=== PATIENT | male | born 1955 | race Caucasian/White ===

== ENCOUNTER 2021-02-22 17:08 | Emergency (ER) | payer OTHER, SELFPAY ==
--- NOTE | ~2021-02-22 | XR_ITS ---
EXAMINATION: XR chest 1V CLINICAL INFORMATION: Shortness of breath COMPARISON: 02/02/2019 TECHNIQUE: XR chest 1V Tubes and lines: None Lungs and pleura: Both lungs are clear. Heart and mediastinum: The mediastinum is within normal limits.. Bones/soft tissue: Skeletal structures included are normal for patient's age. XR/XR chest 1V IMPRESSION: No radiographic evidence of acute cardiopulmonary disease.
[2021-02-22 17:32] VITALS: BP 147/73; PULSE 91; RESP 22; TEMP 36.9; O2SAT 97; BMI 25.0
[2021-02-22 18:38] LABS: Influenza A PCR NEGATIVE (Negative); Influenza B PCR NEGATIVE (Negative); Resp Syncy Virus RNA Qual PCR NEGATIVE (Negative); SARS COV2 PCR INHOUSE NEGATIVE (Negative)
[2021-02-22 21:00] VITALS: BP 136/78; PULSE 82; RESP 18; TEMP 36.6; O2SAT 98
--- NOTE | 2021-02-22 21:19 | ED_ITS ---
HPI - SOB/Dyspnea General Chief Complaint: Dyspnea Stated Complaint: diff breathing Time Seen by Provider: 02/22/21 21:19 Source: patient Mode of arrival: ambulatory History of Present Illness HPI Narrative: This is a 65-year-old male with limited past medical history other than daily marijuana use who presents with shortness of breath and productive cough for 3 days that he states has been associated with chills but denies any chest pain/palpitations, nausea, vomiting, abdominal pain, diarrhea, urinary pain/burning/frequency. Patient states that he has had both COVID-19 vaccines, however but feels he may have had a sick contact few days ago. Related Data Home Medications Medication Instructions Recorded Confirmed fexofenadine 180 mg tablet 180 mg PO DAILY PRN 06/20/20 Previous Rx's Medication Instructions Recorded celecoxib 200 mg capsule 200 mg PO DAILY PRN #30 cap 09/30/20 albuterol sulfate 90 mcg/actuation 2 inh INHALATION Q6H PRN #1 ea 10/22/20 breath activated powder inhaler budesonide-formoterol HFA 160 2 puff PO BID #10.2 g 10/22/20 mcg-4.5 mcg/actuation aerosol inhaler omeprazole 20 mg capsule,delayed 20 mg PO DAILY #90 cap 10/22/20 release prednisone 40 mg PO DAILY 4 Days #8 tab 02/22/21 Allergies Allergy/AdvReac Type Severity Reaction Status Date / Time No Known Allergies Allergy Verified 02/22/21 17:39 [No Known Allergies*] Review of Systems Review of Systems: Pertinent positives and negatives as stated in HPI 10 point review of systems is otherwise negative. [facility] Past Medical History Source: nursing notes reviewed Medical History COPD (chronic obstructive pulmonary disease) Surgical History History of total left knee replacement Family History Family History Father No problems noted. Mother GERD (gastroesophageal reflux disease) Social History Social History Advance Directives: No Advance Directives Information Provided: No Physical Exam Vital Signs: Vital Signs: Last Vital Signs Temp 98 F 02/22/21 21:00 Pulse 82 06/05/21 21:00 Resp 18 02/22/21 21:00 BP 136/78 02/22/21 21:00 Pulse Ox 98 02/22/21 21:00 Body Mass Index 25.0 VITAL SIGNS: Reviewed. GENERAL: Well developed, well nourished, in no acute distress. HEAD: Normocephalic/atraumatic EYES: PERRLA, EOMI l OROPHARYNX: no oral lesions noted, posterior pharynx clear, tacky mucosa NECK: Supple, no adenopathy LUNGS: Bibasilar wheezing with scattered rhonchi bilaterally, no hypoxia SpO2<97> CARDIOVASCULAR: Regular rate and rhythm without noted murmurs, no JVD or lower extremity edema. ABDOMEN: Soft, non-tender, non-distended with bowel sounds. NEUROLOGIC: Alert and oriented x 4. Strength and sensation to light touch were grossly intact x 4. Course Course Course Narrative: This is a 65-year-old male with history and clinical presentation most consistent with a bronchitis, review of investigations negative for COVID-19 or acute findings on chest x-ray. Patient declined albuterol but did accept the prednisone. Review of all investigations negative for any acute findings, specifically VBG is negative for evidence of CO2 retention. Patient stable for discharge to home. MDM - SOB/Dyspnea Lab Data Result diagrams: 02/22/21 21:57 02/22/21 21:57 Labs: Lab Results 02/22/21 02/22/21 02/22/21 Range/Units 17:44 21:57 21:57 WBC 10.6 (4.8-10.8) X10*3/uL RBC 4.92 (4.60-5.80) X10*6/uL Hgb 15.5 (14.0-18.0) g/dl Hct 45.7 (42-52) % MCV 92.9 (80-98) fL MCH 31.5 (27.0-33.0) pg MCHC 33.9 (31.0-36.0) g/dl RDW 12.5 (11.0-16.0) % Plt Count 241 (160-400) X10*3/uL MPV 10.2 (9.4-12.4) fL Immature Gran % (Auto) 0.4 (0.0-0.4) % Neut % (Auto) 75.2 H (45-73) % Lymph % (Auto) 10.3 L (20-40) % [place] % (Auto) 10.2 (2-11) % Eos % (Auto) 3.6 (0-4) % Baso % (Auto) 0.3 (0-2) % Lymph # (Auto) 1.1 L (1.2-4.9) X10*3/uL [place] # (Auto) 1.1 (0.1-1.2) X10*3/uL Eos # (Auto) 0.4 (0.0-0.4) X10*3/uL Baso # (Auto) 0.0 (0.0-0.2) X10*3/uL Abs Immat Gran (auto) 0.04 H (0.00-0.03) X10*3/uL Absolute Neuts (auto) 8.0 (2.0-8.3) X10*3/uL Absolute Nucleated RBC 0.000 (0.0-0.012) X10*3/uL Nucleated RBC % (auto) 0.0 (0.0-0.2) /100WBC VBG pH (7.32-7.43) VBG pCO2 mmHg VBG pO2 mmHg VBG HCO3 (22-26) mmol/L VBG O2 Saturation % VBG Base Excess mmol/L Sodium 140 (135-145) mmol/L Potassium 3.9 (3.3-5.1) mmol/L Chloride 104 (96-108) mmol/L Carbon Dioxide 27 (22-29) mmol/L Anion Gap 13 (12-20) BUN 12 (9-16) mg/dL Creatinine 0.98 (0.5-1.4) mg/dL Estim Creat Clear Calc 87.3 Estimated GFR > 60 Random Glucose 120 H (60-115) mg/dL Calcium 9.0 (8.4-10.2) mg/dL Total Bilirubin 0.8 (0.0-1.0) mg/dL AST 11 (5-37) U/L ALT 10 (0-40) U/L Alkaline Phosphatase 97 (39-117) U/L Total Protein 7.1 (6.5-8.0) g/dL Albumin 4.0 (3.5-5.0) g/dL Coronavirus (PCR) NEGATIVE (Negative) Influenza Type A (PCR) NEGATIVE (Negative) Influenza Type B (PCR) NEGATIVE (Negative) RSV RNA Qual (PCR) NEGATIVE (Negative) 02/22/21 Range/Units 21:57 WBC (4.8-10.8) X10*3/uL RBC (4.60-5.80) X10*6/uL Hgb (14.0-18.0) g/dl Hct (42-52) % MCV (80-98) fL MCH (27.0-33.0) pg MCHC (31.0-36.0) g/dl RDW (11.0-16.0) % Plt Count (160-400) X10*3/uL MPV (9.4-12.4) fL Immature Gran % (Auto) (0.0-0.4) % Neut % (Auto) (45-73) % Lymph % (Auto) (20-40) % [place] % (Auto) (2-11) % Eos % (Auto) (0-4) % Baso % (Auto) (0-2) % Lymph # (Auto) (1.2-4.9) X10*3/uL [place] # (Auto) (0.1-1.2) X10*3/uL Eos # (Auto) (0.0-0.4) X10*3/uL Baso # (Auto) (0.0-0.2) X10*3/uL Abs Immat Gran (auto) (0.00-0.03) X10*3/uL Absolute Neuts (auto) (2.0-8.3) X10*3/uL Absolute Nucleated RBC (0.0-0.012) X10*3/uL Nucleated RBC % (auto) (0.0-0.2) /100WBC VBG pH 7.41 (7.32-7.43) VBG pCO2 35 mmHg VBG pO2 35 mmHg VBG HCO3 22 (22-26) mmol/L VBG O2 Saturation 66.0 % VBG Base Excess -1.0 mmol/L Sodium (135-145) mmol/L Potassium (3.3-5.1) mmol/L Chloride (96-108) mmol/L Carbon Dioxide (22-29) mmol/L Anion Gap (12-20) BUN (9-16) mg/dL Creatinine (0.5-1.4) mg/dL Estim Creat Clear Calc Estimated GFR Random Glucose (60-115) mg/dL Calcium (8.4-10.2) mg/dL Total Bilirubin (0.0-1.0) mg/dL AST (5-37) U/L ALT (0-40) U/L Alkaline Phosphatase (39-117) U/L Total Protein (6.5-8.0) g/dL Albumin (3.5-5.0) g/dL Coronavirus (PCR) (Negative) Influenza Type A (PCR) (Negative) Influenza Type B (PCR) (Negative) RSV RNA Qual (PCR) (Negative) Discharge Plan Discharge Clinical Impression: Bronchitis, COPD (chronic obstructive pulmonary disease) Patient Disposition: Home, Self-Care Instructions: Acute Bronchitis (ED), COPD (Chronic Obstructive Pulmonary Disease) (ED) Additional Instructions: Resume all home medications as prescribed. Follow-up with your primary care provider in the next 2-3 days for re- evaluation. Return to the ER for any worsening of symptoms. Prescriptions: New prednisone 20 mg tablet 40 mg PO DAILY 4 Days Qty: 8 RF: 0 No Action celecoxib 200 mg capsule 200 mg PO DAILY PRN (Reason: pain) Qty: 30 RF: 2 ProAir RespiClick 90 mcg/actuation aerosol powdr breath activated 2 inh inhalation Q6H PRN (Reason: shortness of breath) Qty: 1 RF: 0 budesonide-formoterol [Symbicort] 160-4.5 mcg/actuation HFA aerosol inhaler 2 puff PO BID Qty: 10.2 RF: 1 omeprazole 20 mg capsule,delayed release(DR/EC) 20 mg PO DAILY Qty: 90 RF: 1 fexofenadine [Birgit Allergy] 180 mg tablet 180 mg PO DAILY PRNRF: 0 Referrals: Jareth Barry MD [Primary Care Provider] - 2 days
[2021-02-22] MEDS: predniSONE 20 MG TABLET 40 MG PO (21:50)
[2021-02-22 22:03] LABS: MANUAL DIFF FLAG NO
[2021-02-22 22:04] LABS: Basophils Percent Auto 0.3 % (0-2); Eosinophils Absolute Auto 0.4 X10*3/uL (0.0-0.4); Eosinophils Percent Auto 3.6 % (0-4); Hematocrit 45.7 % (42-52); Hemoglobin 15.5 g/dl (14.0-18.0); Imm Gran Abs Auto 0.04 X10*3/uL (0.00-0.03); Imm Gran Pct Auto 0.4 % (0.0-0.4); Lymphocytes Absolute Auto 1.1 X10*3/uL (1.2-4.9); Lymphocytes Percent Auto 10.3 % (20-40); Mean Corpuscular HGB Conc 33.9 g/dl (31.0-36.0); Mean Corpuscular Hemoglobin 31.5 pg (27.0-33.0); Mean Corpuscular Volume 92.9 fL (80-98); Mean Platelet Volume 10.2 fL (9.4-12.4); Monocytes Absolute Auto 1.1 X10*3/uL (0.1-1.2); Monocytes Percent Auto 10.2 % (2-11); Neutrophils Percent Auto 75.2 % (45-73); Platelet Count 241 X10*3/uL (160-400); Red Blood Count 4.92 X10*6/uL (4.60-5.80); Red Cell Distribution Width 12.5 % (11.0-16.0); White Blood Count 10.6 X10*3/uL (4.8-10.8)
[2021-02-22 22:14] LABS: VBG pCO2 35 mmHg; VBG pH 7.41 (7.32-7.43); VBG pO2 35 mmHg
[2021-02-22 22:15] LABS: VBG HCO3 22 mmol/L (22-26)
[2021-02-22 22:16] LABS: Venous Blood Gas Refer to POC result
[2021-02-22 22:26] LABS: Alanine Aminotransferase 10 U/L (0-40); Alkaline Phosphatase 97 U/L (39-117); Anion Gap 13 (12-20); Aspartate Amino Transferase 11 U/L (5-37); Bilirubin Total 0.8 mg/dL (0.0-1.0); Blood Urea Nitrogen 12 mg/dL (9-16); Carbon Dioxide 27 mmol/L (22-29); Chloride 104 mmol/L (96-108); Creatinine Clr Calc Pharmacy 87.3; Estimated Glomerular Filt Rate > 60; Glucose Random 120 mg/dL (60-115); Potassium 3.9 mmol/L (3.3-5.1); Sodium 140 mmol/L (135-145); Total Protein 7.1 g/dL (6.5-8.0)
[2021-02-24 09:02] LABS: VBG HCO3 22 mmol/L (22-26); VBG pCO2 35 mmHg; VBG pH 7.41 (7.32-7.43); VBG pO2 35 mmHg
== END 2021-02-22 22:50 | disposition home or self-care (01) ==
PROVIDERS: Emergency Provider Student in an Organized Health Care Education/Training Program; PCP Internal Medicine
DX: J40 Bronchitis, not specified as acute or chronic (principal); J44.9 Chronic obstructive pulmonary disease, unspecified; R06.02 Shortness of breath; Z79.899 Other long term (current) drug therapy; Z20.822 Contact with and (suspected) exposure to COVID-19
CPT/HCPCS: 0241U; 36415; 71045; 80053; 85025; 99284

== ENCOUNTER 2021-04-23 17:43 | Outpatient (REF) | payer OTHER, SELFPAY | END 2021-04-23 17:44 | disposition home or self-care (01) | LOC: HO.LNP 17:43 | PROVIDERS: Visit Provider Internal Medicine | DX: Z13.89 Encounter for screening for other disorder (principal) | CPT/HCPCS: 87071; 87205 ==

== ENCOUNTER 2021-05-05 14:22 | Outpatient (REF) | payer MEDICARE, SELFPAY ==
--- NOTE | ~2021-05-05 | XR_ITS ---
EXAMINATION: XR CERVICAL SPINE CLINICAL INFORMATION: Cervical radiculopathy. COMPARISON: None. TECHNIQUE: 3 views of the cervical spine were obtained. FINDINGS: Normal vertebral body alignment. The cervical lordosis is maintained. No acute fracture or subluxation. No loss of vertebral body height. Loss of intervertebral disc height at C6-C7. Multilevel bilateral facet arthropathy with. Normal atlantoaxial alignment. Unremarkable prevertebral soft tissues. XR/XR cervical spine 3V IMPRESSION: Moderate degenerative disc disease at C6-C7. Prominent multilevel bilateral facet arthropathy.
== END 2021-05-05 14:23 | disposition home or self-care (01) ==
LOC: HO.XRAY 14:22
PROVIDERS: PCP Internal Medicine; Visit Provider Internal Medicine
DX: M47.22 Other spondylosis with radiculopathy, cervical region (principal)
CPT/HCPCS: 72040

== ENCOUNTER 2021-05-12 14:21 | Outpatient (REF) | payer MEDICARE, SELFPAY ==
--- NOTE | ~2021-05-12 | CT_ITS ---
EXAMINATION: CT HEAD WITHOUT CONTRAST CLINICAL INFORMATION: Headaches. COMPARISON: None TECHNIQUE: Contiguous axial imaging was performed from the skull base to vertex without intravenous administration of contrast. This CT examination was performed using dose optimization techniques as appropriate, variously including the following: *Automated exposure control *Adjustment of mA and/or kV according to patient size (this includes techniques or standardized protocols for targeted exams where dose is matched to indication/reason for exam; i.e. extremities or head) *Use of iterative reconstruction technique DLP: 854 mGy-cm FINDINGS: There is no evidence of acute intracranial hemorrhage or territorial infarction. No abnormal mass effect or midline shift is seen. Bernstein to white matter differentiation is well preserved. No extra-axial fluid collections are identified. The ventricles are normal in size. There is no abnormal attenuation within the brain parenchyma. The osseous structures and soft tissues are normal. The mastoid air cells and visualized portions of the paranasal sinuses are well aerated. CT/CT head/brain wo con IMPRESSION: No acute intracranial pathology.
== END 2021-05-12 14:22 | disposition home or self-care (01) ==
LOC: HO.CT 14:21
PROVIDERS: PCP Internal Medicine; Visit Provider Internal Medicine
DX: R51.9 Headache, unspecified (principal); G89.29 Other chronic pain
CPT/HCPCS: 70450

== ENCOUNTER 2021-10-29 06:21 | Outpatient (REF) | payer MEDICARE, SELFPAY ==
[2021-10-29 06:39] LABS: MANUAL DIFF FLAG NO
[2021-10-29 07:21] LABS: Basophils Absolute Auto 0.1 X10*3/uL (0.0-0.2); Basophils Percent Auto 0.9 % (0-2); Eosinophils Absolute Auto 0.5 X10*3/uL (0.0-0.4); Hematocrit 45.8 % (42.0-52.0); Hemoglobin 15.2 g/dl (14.0-18.0); Imm Gran Abs Auto 0.05 X10*3/uL (0.00-0.03); Imm Gran Pct Auto 0.7 % (0.0-0.4); Lymphocytes Absolute Auto 1.8 X10*3/uL (1.2-4.9); Lymphocytes Percent Auto 26.4 % (20-40); Mean Corpuscular HGB Conc 33.2 g/dl (31.0-36.0); Mean Corpuscular Hemoglobin 30.8 pg (27.0-33.0); Mean Corpuscular Volume 92.7 fL (80.0-98.0); Mean Platelet Volume 10.3 fL (9.4-12.4); Monocytes Absolute Auto 0.6 X10*3/uL (0.1-1.2); Monocytes Percent Auto 9.3 % (2-11); Neutrophils Absolute Auto 3.8 x10*3/uL (2.0-8.3); Neutrophils Percent Auto 55.7 % (45-73); Platelet Count 252 X10*3/uL (160-400); Red Blood Count 4.94 X10*6/uL (4.60-5.80); Red Cell Distribution Width 12.7 % (11.0-16.0); White Blood Count 6.8 X10*3/uL (4.8-10.8)
[2021-10-29 07:47] LABS: Alanine Aminotransferase 13 U/L (0-40); Albumin Level 3.8 g/dL (3.5-5.0); Alkaline Phosphatase 89 U/L (39-117); Anion Gap 10 (12-20); Aspartate Amino Transferase 11 U/L (5-37); Bilirubin Total 0.8 mg/dL (0.0-1.0); Blood Urea Nitrogen 13 mg/dL (9-16); Carbon Dioxide 28 mmol/L (22-29); Chloride 105 mmol/L (96-108); Cholesterol 197 mg/dL; Estimated Glomerular Filt Rate > 60; Glucose Fasting 105 mg/dL (60-99); HDL Cholesterol 41 mg/dL; LDL Cholesterol Calculated 135 mg/dl; Potassium 4.6 mmol/L (3.3-5.1); Sodium 138 mmol/L (135-145); Triglycerides 107 mg/dL
[2021-10-29 07:53] LABS: Appearance Urine CLEAR; Color Urine YELLOW; Glucose Urine UA NEG (NEG); Leukocyte Esterase Urine NEG (NEG); Nitrite Urine NEG (NEG); Specific Gravity - Urine 1.025 (1.005-1.025); Urine Blood NEG (NEG); Urine Ketones NEG (NEG); Urine Protein NEG (NEG-TRACE)
[2021-10-29 07:58] LABS: Erythrocyte Sedimentation Rate 7 MM/HR (0-15)
[2021-10-29 08:13] LABS: TSH reflex Free T4 1.56 uIU/mL (0.32-4.0); Vitamin D 25-OH Total 18.6 ng/mL (>30)
[2021-10-29 08:45] LABS: Prostate Specific Antigen Scr 2.09 ng/mL (<0.05-4.0)
== END 2021-10-29 06:22 | disposition home or self-care (01) ==
LOC: HO.LAB 06:21
PROVIDERS: PCP Internal Medicine; Visit Provider Internal Medicine
DX: Z00.00 Encounter for general adult medical examination without abnormal findings (principal); Z12.5 Encounter for screening for malignant neoplasm of prostate; G89.29 Other chronic pain; R51.9 Headache, unspecified; E55.9 Vitamin D deficiency, unspecified
CPT/HCPCS: 36415; 80053; 80061; 81003; 82306; 84153; 84443; 85025; 85652

== ENCOUNTER 2022-06-26 21:14 | Emergency (ER) | payer MEDICARE, SELFPAY ==
[2022-06-26 21:26] VITALS: BP 99/67; PULSE 95; RESP 17; TEMP 36.8; O2SAT 95; BMI 26.4
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
--- NOTE | 2022-06-27 01:35 | PC.NURSE ---
Placed a volar splint to right arm, checked for placement and made sure its not to tight. Rn aware
--- NOTE | 2022-06-27 01:44 | ED.EXTPRO ---
HPI - Extremity Problem General Chief complaint: Extremity Injury, Upper Stated complaint: hurt R hand Time Seen by Provider: 06/27/22 01:03 Source: patient Mode of arrival: ambulatory Limitations: no limitations Related Data Home Medications Medication Instructions Recorded Confirmed fexofenadine 180 mg tablet 180 mg PO DAILY PRN 06/20/20 10/24/21 (Birgit Allergy) Previous Rx's Medication Instructions Recorded tobramycin 0.3 %-dexamethasone 0.1 1 drp ophthalmic (eye) QID 10 days 10/24/21 % eye drops,suspension #10 mL Symbicort 160 mcg-4.5 2 puff PO BID #10.2 grams 12/08/21 mcg/actuation HFA aerosol inhaler (budesonide-formoterol) albuterol sulfate 90 mcg/actuation 2 inh inhalation Q6H PRN shortness 04/03/22 breath activated powder inhaler of breath #1 ea (ProAir RespiClick) celecoxib 200 mg capsule 200 mg PO DAILY PRN pain 30 days 05/10/22 #30 caps omeprazole 20 mg capsule,delayed 20 mg PO DAILY PRN acid reflux 90 06/26/22 release days #90 caps morphine 15 mg immediate release 7.5 mg PO Q8H PRN Wrist fracture 06/27/22 tablet #10 tabs morphine 15 mg immediate release 7.5 mg PO Q8H PRN wrist fracture 06/27/22 tablet #10 tabs Allergies Allergy/AdvReac Type Severity Reaction Status Date / Time No Known Allergies Allergy Verified 10/24/21 14:24 [No Known Allergies*] [facility] Past Medical History Medical History (Updated 06/27/22 @ 01:12 by Clinton Delong DO) Asthma Cataract Cervical radiculopathy due to degenerative joint disease of spine COPD (chronic obstructive pulmonary disease) GERD without esophagitis Overweight (BMI 25.0-29.9) Surgical History History of cataract surgery History of total left knee replacement Family History Family History Father No problems noted. Mother GERD (gastroesophageal reflux disease) Social History Social History Housing: House Alcohol intake: current Alcohol intake frequency: holidays/special occasions only Alcohol type: beer Patient Tobacco Use Status: Former Tobacco user Second Hand Smoke Exposure: Yes Advance Directives: No Advance Directives Information Provided: No service: Yes ([employer]) Current occupational status: retired Physical Exam Vital Signs: Vital Signs: Last Vital Signs Temp 98.2 F 06/26/22 21:26 Pulse 95 06/26/22 21:26 Resp 17 06/26/22 21:26 BP 99/67 06/26/22 21:26 Pulse Ox 95 06/26/22 21:26 O2 Del Method 06/26/22 21:26 BMI result Body Mass Index 26.4 MDM - Extremity (Nontraumatic) MDM Narrative Medical decision making narrative: duplicate please see other note Discharge Plan Discharge Clinical Impression: Fracture of wrist, Fracture of scaphoid bone of right wrist Patient Disposition: Home, Self-Care Instructions: Wrist Fracture in Adults (ED) Additional Instructions: Please call to follow up for your wrist. If you have any other concerns please return to the ED. Prescriptions: New morphine 15 mg tablet 7.5 mg PO Q8H PRN (Reason: Wrist fracture) Qty: 10 0RF Rx Instructions: Partial Fill upon patient request. morphine 15 mg tablet 7.5 mg PO Q8H PRN (Reason: wrist fracture) Qty: 10 0RF Rx Instructions: Partial Fill upon patient request. No Action budesonide-formoterol [Symbicort] 160-4.5 mcg/actuation HFA aerosol inhaler 2 puff PO BID Qty: 10.2 3RF ProAir RespiClick 90 mcg/actuation aerosol powdr breath activated 2 inh inhalation Q6H PRN (Reason: shortness of breath) Qty: 1 3RF celecoxib 200 mg capsule 200 mg PO DAILY PRN (Reason: pain) 30 Days Qty: 30 2RF omeprazole 20 mg capsule,delayed release(DR/EC) 20 mg PO DAILY PRN (Reason: acid reflux) 90 Days Qty: 90 1RF fexofenadine [Birgit Allergy] 180 mg tablet 180 mg PO DAILY PRN tobramycin-dexamethasone 0.3-0.1 % drops,suspension 1 drp ophthalmic (eye) QID 10 Days Qty: 10 0RF Referrals: Timbo Riddle MD [Physician] - (Please call to follow up for your wrist fracture.)
--- NOTE | 2022-06-27 07:05 | PC.NURSE ---
Pt. not medicated w/pain meds at d/c because he was driving home. Pt. rx called into [facility] per his request.
== END 2022-06-27 05:06 | disposition home or self-care (01) ==
PROVIDERS: Emergency Provider Student in an Organized Health Care Education/Training Program; PCP Internal Medicine
DX: S62.001A Unspecified fracture of navicular [scaphoid] bone of right wrist, initial encounter for closed fracture (principal); V13.4XXA Pedal cycle driver injured in collision with car, pick-up truck or van in traffic accident, initial encounter; Y93.55 Activity, bike riding; Y92.414 Local residential or business street as the place of occurrence of the external cause; Y99.9 Unspecified external cause status
CPT/HCPCS: 73090; 73110; 73130; 99282; 99283

== ENCOUNTER 2022-07-14 | Outpatient (REF) | payer MEDICARE, SELFPAY ==
--- NOTE | ~2022-07-14 | XR_ITS ---
EXAMINATION: RIGHT WRIST 3 VIEWS CLINICAL INFORMATION: Follow-up fracture COMPARISON: 06/26/2022 TECHNIQUE: AP and lateral and oblique views of right wrist FINDINGS: There is linear lucencies through the midportion of right scaphoid with small fragments medially, and with faint sclerosis at the margin of mildly displaced fracture and is consistent with healing fracture of scaphoid waist. XR/XR wrist RT w scaphoid IMPRESSION: Interval healing of fracture of the right scaphoid
== END 2022-07-14 00:01 | disposition home or self-care (01) ==
LOC: HO.HOSX
PROVIDERS: Visit Provider Physician Assistant
DX: Z01.818 Encounter for other preprocedural examination (principal); S62.021A Displaced fracture of middle third of navicular [scaphoid] bone of right wrist, initial encounter for closed fracture
CPT/HCPCS: 73110; 99202

== ENCOUNTER 2022-07-20 07:15 | Day surgery (SDC) | payer MEDICARE, SELFPAY ==
[2022-07-20] VITALS (9 sets, daily range): BP systolic 103–128; BP diastolic 61–72; PULSE 60–75; RESP 16; TEMP 36.1–36.4; O2SAT 95–100; BMI 26.2
--- NOTE | ~2022-07-20 | FL_ITS ---
EXAMINATION: XR FLUOROSCOPY WITH IMAGES CLINICAL INFORMATION: Reduction scaphoid fracture. COMPARISON: Radiographs right wrist 07/14/2022, 06/26/2022 TECHNIQUE: Fluoroscopy performed by Dr. Yudi Tucker. Fluoroscopy time: 1.4 minutes. Cumulative Dose: 3.038 mGy. DAP: 0.184 Gycm2. Images: 8. FINDINGS: The mid scaphoid fracture is reduced with cannulated screw along the long axis. Fracture fragments are in near-anatomic alignment. Hardware intact. FL/FL guidance in OR IMPRESSION: Status post open reduction internal fixation scaphoid fracture.
--- NOTE | 2022-07-20 08:56 | HO.ANESPROP2 ---
HPI - Anesthesia Eval Consult details Narrative: 67 M for right scaphoid ORIF PMFSH Active Problems Active Problems: All Active Problems (Updated 07/14/22 @ 09:16 by Yudi Tucker MD) Closed transverse fracture of waist of scaphoid of right wrist (Acute) Overweight (BMI 25.0-29.9) (Acute) Annual physical exam (Acute) Chronic right-sided headaches (Acute) Cervical radiculopathy due to degenerative joint disease of spine (Acute) Otitis externa of right ear (Acute) Acute sinusitis (Acute) GERD without esophagitis (Acute) Asthma (Acute) Cataract (Acute) Preoperative examination (Acute) Past Medical History Medical History Asthma Cataract Cervical radiculopathy due to degenerative joint disease of spine COPD (chronic obstructive pulmonary disease) GERD without esophagitis Overweight (BMI 25.0-29.9) Family History Family History Father No problems noted. Mother GERD (gastroesophageal reflux disease) Family history of problems with anesthesia: No Surgical History Surgical History History of cataract surgery History of total left knee replacement History of Problems with Anesthesia: No Social History Social History (Updated 07/14/22 @ 08:22 by RYAN Elias) Housing: House Alcohol intake: current Alcohol intake frequency: holidays/special occasions only Alcohol type: beer Patient Tobacco Use Status: Former Tobacco user Tobacco use type: Cigarette Second Hand Smoke Exposure: Yes service: Yes ([employer]) Current occupational status: retired Current occupation: rt hand/ Meds Allergies Allergy/AdvReac Type Severity Reaction Status Date / Time No Known Allergies Allergy Verified 07/14/22 08:20 [No Known Allergies*] Home Medications Medication Instructions Recorded Confirmed Last Taken Type fexofenadine 180 mg tablet 180 mg PO DAILY PRN allergies 06/20/20 07/20/22 Unknown History (Birgit Allergy) albuterol sulfate 90 mcg/actuation 2 puff inhalation Q6H PRN dyspnea 07/20/22 07/20/22 07/20/22 History breath activated powder inhaler (ProAir RespiClick) Exam Exam Date and Time: July 20, 2022 0856 Height,Weight and Vital Signs: Height 6 ft 1 in Weight 90.265 kg Last Vital Signs Temp 97.4 F 07/20/22 08:38 Pulse 61 07/20/22 08:38 Resp 16 07/20/22 08:38 BP 110/68 07/20/22 08:38 Pulse Ox 96 07/20/22 08:38 O2 Del Method 07/20/22 08:38 Airway Mallampati Class: III TM Dist: >3cm Neck ROM: Full Loose/Missing/Broken Teeth: Yes (Poor dentition overall , multiple chipped teeth ) Heart: S1,S2 Lungs: b/l breath sounds Assessment and Plan Assessment Anesthesia Assessment: Anesthesia Plan Discussed and Chart Reviewed Final Anesthetic Review Family History of Problems with Anesthesia: No History of Problems with Anesthesia: No NPO: Yes ASA Class: II Final Preanesthetic Review: Meds/Allgs Chart Reviewed, Consent Obtained/Reviewed and Anes Risks/Benef Reviewed Patient Risk: Intermediate Procedure Risk: Intermediate Anesthetic Plan Anesthetic Plan: GA Disposition: Standard PACU
--- NOTE | 2022-07-20 11:16 | MHC.SHP ---
Pre-Procedural Eval Section A Date of Service: 07/20/22 The patient is an INPATIENT: No Changes since office visit: No Cold of Flu in the past 2 weeks, No New Medical Problems, No Changes in Medication and No Patient answered all questions The History & Physical has been completed within 30 days and I have reviewed it.: Yes Section B Chief Complaint: Unspecified fracture of navicular [scaphoid] bone Allergies: Allergies Allergy/AdvReac Type Severity Reaction Status Date / Time No Known Allergies Allergy Verified 07/14/22 08:20 [No Known Allergies*] Plan I have reviewed the history and physical and performed a pertinent physical examination on my patient. No changes have occurred unless specified.
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
== END 2022-07-20 13:01 | disposition home or self-care (01) ==
PROVIDERS: PCP Internal Medicine; Visit Provider Orthopaedic Surgery
PROC: (CPT 25628; principal; 2022-07-20 09:10)
DX: S62.011A Displaced fracture of distal pole of navicular [scaphoid] bone of right wrist, initial encounter for closed fracture (principal); W17.89XA Other fall from one level to another, initial encounter; Y93.55 Activity, bike riding; Y92.9 Unspecified place or not applicable; Y99.8 Other external cause status; J44.9 Chronic obstructive pulmonary disease, unspecified; M50.10 Cervical disc disorder with radiculopathy, unspecified cervical region; E66.3 Overweight; Z68.26 Body mass index [BMI] 26.0-26.9, adult; Z87.891 Personal history of nicotine dependence; Z79.899 Other long term (current) drug therapy; Z96.652 Presence of left artificial knee joint
CPT/HCPCS: 25628; C1713; J0690; J1100; J1170; J2250; J2405; J2795; J3010

== ENCOUNTER 2022-08-03 15:54 | Outpatient (REF) | payer MEDICARE, SELFPAY ==
--- NOTE | ~2022-08-03 | XR_ITS ---
EXAMINATION: XR WRIST WITH SCAPHOID, RIGHT CLINICAL INFORMATION: Fracture scaphoid. COMPARISON: Fluoroscopic spot views 07/20/2022, radiographs right breast 07/14/2022. TECHNIQUE: Right wrist is imaged in 4 views, including a navicular view. FINDINGS: Mid scaphoid fracture is reduced with 2 cannulated screw along the long axis. Fracture fragments are in near-anatomic alignment, stable from prior portable exam. There is some decreased mineralization or subtle cystic change mid navicular. Fracture line still visible. No sclerosis. No dislocation or destructive process. Ulnar variance is neutral. Pronator quadratus fat pad normal. XR/XR wrist RT w scaphoid IMPRESSION: Status post reduction scaphoid fracture.
== END 2022-08-03 15:55 | disposition home or self-care (01) ==
LOC: HO.HOSX 15:54
PROVIDERS: Visit Provider Orthopaedic Surgery
DX: M25.531 Pain in right wrist (principal)
CPT/HCPCS: 73110

== ENCOUNTER → 2022-08-06 10:08 | Outpatient (BNVA) | payer MEDICARE, SELFPAY | PROVIDERS: PCP Internal Medicine; Visit Provider Physician Assistant | DX: S62.021A Displaced fracture of middle third of navicular [scaphoid] bone of right wrist, initial encounter for closed fracture (principal) | CPT/HCPCS: 29085 ==

== ENCOUNTER 2022-08-19 13:48 | Outpatient (REF) | payer MEDICARE, SELFPAY ==
--- NOTE | ~2022-08-19 | XR_ITS ---
EXAMINATION: XR WRIST, RIGHT CLINICAL INFORMATION: Right wrist pain. COMPARISON: Right wrist x-rays of 08/04/2022, 07/14/2022, 06/26/2022. TECHNIQUE: 4 views of the right wrist. FINDINGS: A surgical screw transfixing the scaphoid waist fracture is again noted without interval change in appearance. Fracture lucency is still visible. Mild changes of sclerosis are noted along the fracture lucency suggesting interval changes of healing, however, there is no evidence of external callus formation. No evidence of additional fracture. The bones are otherwise in normal alignment. XR/XR wrist RT w scaphoid IMPRESSION: Surgical hardware transfixing the right scaphoid fracture is stable in appearance with near-anatomic alignment of the fracture fragments. Fracture lucency is still visible, however, there appear to be minimal sclerotic changes along the fracture lucency suggesting internal changes of healing.
== END 2022-08-19 13:49 | disposition home or self-care (01) ==
LOC: HO.HOSX 13:48
PROVIDERS: Visit Provider Orthopaedic Surgery
DX: M25.531 Pain in right wrist (principal)
CPT/HCPCS: 73110

== ENCOUNTER 2022-09-09 | Outpatient (REF) | payer MEDICARE, SELFPAY ==
--- NOTE | ~2022-09-09 | XR_ITS ---
EXAMINATION: X-RAY RIGHT WRIST CLINICAL INFORMATION: Pain COMPARISON: Prior x-ray 08/19/2022 TECHNIQUE: 4 views FINDINGS: There are postsurgical changes with a screw positioned in the scaphoid. Hardware is intact. The previously seen scaphoid fracture plane is not clearly evident on x-ray, with question subtle visualization of the fracture plane along the radial and ulnar aspect of the fracture plane. No x-ray evidence of increased density or fragmentation of the proximal pole. Mild-moderate triscaphe articulation and first CMC joint arthritis. There is sclerosis of the proximal aspect of the lunate, which may reflect degenerative changes. No new acute fractures identified. XR/XR wrist RT w scaphoid IMPRESSION: Postoperative changes related to surgical fixation of a scaphoid fracture. There appears to be interval partial healing of the fracture as compared to the prior study. 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
== END 2022-09-09 00:01 | disposition home or self-care (01) ==
LOC: HO.HOSX
PROVIDERS: Visit Provider Orthopaedic Surgery
DX: Z13.89 Encounter for screening for other disorder (principal)

== ENCOUNTER → 2022-09-09 09:27 | Outpatient (BNVA) | payer MEDICARE, SELFPAY | PROVIDERS: PCP Internal Medicine; Visit Provider Orthopaedic Surgery | DX: S62.021D Displaced fracture of middle third of navicular [scaphoid] bone of right wrist, subsequent encounter for fracture with routine healing (principal) | CPT/HCPCS: 29125; 73110; 99212 ==

== ENCOUNTER 2022-09-15 09:22 | Outpatient (REF) | payer MEDICARE, SELFPAY ==
--- NOTE | ~2022-09-15 | CT_ITS ---
EXAMINATION: CT WRIST WITHOUT CONTRAST, RIGHT CLINICAL INFORMATION: Displaced fracture middle third of navicular. COMPARISON: None TECHNIQUE: CT scan of the right wrist is performed with reconstruction imaging performed at the acquisition workstation. This CT examination was performed using dose optimization techniques as appropriate, variously including the following: *Automated exposure control *Adjustment of mA and/or kV according to patient size (this includes techniques or standardized protocols for targeted exams where dose is matched to indication/reason for exam; i.e. extremities or head) *Use of iterative reconstruction technique DLP: 139 mGy-cm FINDINGS: There are postoperative changes with screw in place along the volar long axis of the scaphoid crossing the area of the scaphoid fracture. There is some persistent slightly irregular lucency along the dorsal ulnar aspect of the presumed fracture line. Otherwise there is medullary continuity throughout the volar aspect of the scaphoid. Minimal irregularity and deformity of the dorsal and radial cortex of the scaphoid likely sequela of prior fracture. Overall approximately 80% of the area of the fracture demonstrates osseous bridging. The alignment appears anatomic/near-anatomic. There is no increased density or fragmentation of the proximal portion of the scaphoid. There is arthrosis of the triscaphoid joint manifested by subchondral cystic change on the scaphoid side of the joint. First carpometacarpal joint: There are marginal osteophytes and subchondral cystic changes indicative of mild osteoarthritis. Remaining bone and joints unremarkable. Surrounding soft tissues unremarkable. CT/CT wrist RT wo IV con IMPRESSION: 1. Postoperative changes related to fixation of scaphoid fracture. Approximately 80% of the area of the fracture demonstrates osseous bridging. 2. 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
== END 2022-09-15 09:23 | disposition home or self-care (01) ==
LOC: HO.CT 09:22
PROVIDERS: PCP Internal Medicine; Visit Provider Orthopaedic Surgery
DX: S62.021A Displaced fracture of middle third of navicular [scaphoid] bone of right wrist, initial encounter for closed fracture (principal)
CPT/HCPCS: 73200

== ENCOUNTER → 2022-09-23 10:05 | Outpatient (BNVA) | payer MEDICARE, OTHER, SELFPAY | PROVIDERS: PCP Internal Medicine; Visit Provider Orthopaedic Surgery | DX: Z13.89 Encounter for screening for other disorder (principal) ==

== ENCOUNTER 2023-01-26 07:01 | Outpatient (REF) | payer OTHER, SELFPAY ==
[2023-01-26 07:12] LABS: MANUAL DIFF FLAG NO
[2023-01-26 07:35] LABS: Basophils Absolute Auto 0.1 X10*3/uL (0.0-0.2); Basophils Percent Auto 0.8 % (0-2); Eosinophils Absolute Auto 0.5 X10*3/uL (0.0-0.4); Eosinophils Percent Auto 8.4 % (0-4); Hematocrit 48.3 % (42.0-52.0); Hemoglobin 16.1 g/dl (14.0-18.0); Imm Gran Abs Auto 0.02 X10*3/uL (0.00-0.03); Imm Gran Pct Auto 0.3 % (0.0-0.4); Lymphocytes Absolute Auto 1.7 X10*3/uL (1.2-4.9); Lymphocytes Percent Auto 28.1 % (20-40); Mean Corpuscular HGB Conc 33.3 g/dl (31.0-36.0); Mean Corpuscular Hemoglobin 31.1 pg (27.0-33.0); Mean Corpuscular Volume 93.2 fL (80.0-98.0); Mean Platelet Volume 11.1 fL (9.4-12.4); Monocytes Absolute Auto 0.7 X10*3/uL (0.1-1.2); Monocytes Percent Auto 10.6 % (2-11); Neutrophils Absolute Auto 3.2 x10*3/uL (2.0-8.3); Neutrophils Percent Auto 51.8 % (45-73); Platelet Count 234 X10*3/uL (160-400); Red Blood Count 5.18 X10*6/uL (4.60-5.80); Red Cell Distribution Width 12.3 % (11.0-16.0); White Blood Count 6.2 X10*3/uL (4.8-10.8)
[2023-01-26 07:36] LABS: Appearance Urine Clear; Color Urine Yellow; Glucose Urine UA Negative (Negative); Leukocyte Esterase Urine Trace (Negative); Nitrite Urine Negative (Negative); PH 6.5 (5.0-9.0); Specific Gravity - Urine 1.015 (1.005-1.025); UMIC TRIGGER UACC YES; Urine Blood Negative (Negative); Urine Ketones Negative (Negative); Urine Protein Negative (Neg-Trace)
[2023-01-26 07:48] LABS: Bacteria Urine None Seen (None Seen); Hyaline Casts Urine 0-2 /LPF (0-2); RBC Urine 0-2 /HPF (0-2); Squamous Epithelial Cell Urine 0-2 /HPF (0-2); WBC Urine 0-5 /HPF (0-5)
[2023-01-26 11:02] LABS: Estimated Average Glucose 111 mg/dL; Hemoglobin A1c % 5.5 %
[2023-01-26 12:29] LABS: Alanine Aminotransferase 7 U/L (0-40); Albumin Level 3.9 g/dL (3.5-5.0); Alkaline Phosphatase 100 U/L (39-117); Anion Gap 12 (12-20); Aspartate Amino Transferase 10 U/L (5-37); Bilirubin Total 0.7 mg/dL (0.0-1.0); Blood Urea Nitrogen 12 mg/dL (9-16); Carbon Dioxide 27 mmol/L (22-29); Chloride 105 mmol/L (96-108); Cholesterol 177 mg/dL; Estimated Glomerular Filt Rate > 60; Glucose Fasting 108 mg/dL (60-99); HDL Cholesterol 35 mg/dL; LDL Cholesterol Calculated 125 mg/dl; Potassium 4.7 mmol/L (3.3-5.1); Prostate Specific Antigen Scr 2.79 ng/mL (<0.05-4.0); Sodium 139 mmol/L (135-145); TSH reflex Free T4 1.28 uIU/mL (0.32-4.0); Total Protein 6.9 g/dL (6.5-8.0); Triglycerides 87 mg/dL
== END 2023-01-26 07:02 | disposition home or self-care (01) ==
LOC: HO.LAB 07:01
PROVIDERS: PCP Internal Medicine; Visit Provider Internal Medicine
DX: Z00.00 Encounter for general adult medical examination without abnormal findings (principal); Z12.5 Encounter for screening for malignant neoplasm of prostate; R73.9 Hyperglycemia, unspecified; E78.00 Pure hypercholesterolemia, unspecified; E55.9 Vitamin D deficiency, unspecified; I10 Essential (primary) hypertension
CPT/HCPCS: 36415; 80053; 80061; 81001; 82306; 83036; 84153; 84443; 85025

== ENCOUNTER 2023-05-12 09:48 | Outpatient (REF) | payer OTHER, SELFPAY ==
--- NOTE | ~2023-05-12 | XR_ITS ---
EXAMINATION: XR CHEST CLINICAL INFORMATION: Allergic 390 COMPARISON: None available. TECHNIQUE: 2 views of the chest were obtained. FINDINGS: No significant abnormality is noted involving the heart, lungs, mediastinum, bony thorax or soft tissues. XR/XR chest 2V IMPRESSION: Unremarkable examination, without interval change.
[2023-05-12 11:03] LABS: MANUAL DIFF FLAG NO
[2023-05-12 11:51] LABS: Basophils Absolute Auto 0.1 X10*3/uL (0.0-0.2); Eosinophils Absolute Auto 0.3 X10*3/uL (0.0-0.4); Eosinophils Percent Auto 5.3 % (0-4); Hemoglobin 15.9 g/dl (14.0-18.0); Imm Gran Abs Auto 0.03 X10*3/uL (0.00-0.03); Imm Gran Pct Auto 0.5 % (0.0-0.4); Lymphocytes Absolute Auto 1.8 X10*3/uL (1.2-4.9); Lymphocytes Percent Auto 31.3 % (20-40); Mean Corpuscular HGB Conc 33.8 g/dl (31.0-36.0); Mean Corpuscular Hemoglobin 31.7 pg (27.0-33.0); Mean Corpuscular Volume 93.8 fL (80.0-98.0); Mean Platelet Volume 11.6 fL (9.4-12.4); Monocytes Absolute Auto 0.6 X10*3/uL (0.1-1.2); Monocytes Percent Auto 10.8 % (2-11); Neutrophils Percent Auto 51.1 % (45-73); Platelet Count 181 X10*3/uL (160-400); Red Blood Count 5.01 X10*6/uL (4.60-5.80); Red Cell Distribution Width 13.2 % (11.0-16.0); White Blood Count 5.8 X10*3/uL (4.8-10.8)
[2023-05-12 12:37] LABS: Erythrocyte Sedimentation Rate 6 MM/HR (0-15)
[2023-05-13 22:54] LABS: Immunoglobulin E 211 kU/L (<OR=114)
[2023-05-14 13:59] LABS: IgA 516 mg/dL (70-320); IgG 1378 mg/dL (600-1540); IgM 99 mg/dL (50-300)
[2023-05-19 14:43] LABS: Asperg fumigatus Precip Abs NEGATIVE (NEGATIVE); Micropoly faeni Abs NEGATIVE (NEGATIVE); Pigeon serum Abs NEGATIVE (NEGATIVE); Saccharo pora viridis Abs NEGATIVE (NEGATIVE); Thermo candidus Abs NEGATIVE (NEGATIVE); Thermoa vulgaris #1 NEGATIVE (NEGATIVE)
== END 2023-05-12 09:49 | disposition home or self-care (01) ==
LOC: HO.LAB 09:48
PROVIDERS: PCP Internal Medicine; Visit Provider Hospitalist
DX: Z23 Encounter for immunization (principal); J45.40 Moderate persistent asthma, uncomplicated; J30.9 Allergic rhinitis, unspecified; L30.9 Dermatitis, unspecified; R91.8 Other nonspecific abnormal finding of lung field
CPT/HCPCS: 36415; 71046; 82784; 82785; 85025; 85652; 86003; 86331; 86606; 86609; 90471; 90677

== ENCOUNTER 2023-05-12 09:48 | Outpatient (AMB) | payer OTHER, SELFPAY ==
--- NOTE | 2023-05-12 09:58 | A.OFFVIS_ITS ---
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 The patient is a 68-year-old gentleman known history of lifelong asthma. He has been relatively stable on Symbicort and also on the ProAir RespiClick inhaler. He does take antihistamines as needed. He also suffers from chronic rhinitis and eczema consistent with atopy. The patient has not required prednisone in several months. He does use his rescue inhaler couple times a week. Typically his seasons are worse during the fall and spring. We did talk about considering Singulair starting in the fall to improve his medication response. The patient has not had any recent x-rays or PFTs. Therefore will have him undergo x-rays PFTs and also blood work to assess his allergies. [facility] Medical History (Updated 05/12/23 @ 22:23 by Lev Vargas MD) Asthma Asthma-COPD overlap syndrome Cataract Cervical radiculopathy due to degenerative joint disease of spine Chronic allergic rhinitis COPD (chronic obstructive pulmonary disease) Eczema GERD without esophagitis Overweight (BMI 25.0-29.9) Surgical History (Updated 01/20/23 @ 13:57 by Jareth Barry MD) History of cataract surgery History of surgery on right wrist (~2021) History of total left knee replacement Hx of colonoscopy (~2014) Family History Father No problems noted. Mother GERD (gastroesophageal reflux disease) Social History Housing: House Alcohol intake: current Alcohol intake frequency: holidays/special occasions only Alcohol type: beer Patient Tobacco Use Status: Former Tobacco user Tobacco use type: Cigarette e-Cigarette/Vaping Use: Never Used Second Hand Smoke Exposure: Yes service: Yes ([employer]) Current occupational status: retired Current occupation: rt hand/ Cognitive needs: No Hearing needs: No Vision needs: No Review of Systems Const Denies fever(s) Eyes Denies change in vision ENT Reports nasal congestion and Reports nasal discharge Card Denies chest pain Resp Reports chest congestion, Reports cough and Reports wheezing GI Reports no additional complaints Musc Reports no additional complaints Skin/Breast Reports rash Neuro Reports no additional complaints Psych Reports no additional complaints Endo Reports no additional complaints Bassam/Lymph Denies lymphadenopathy Aller/Immun Reports wheezing Physical Exam Vital Signs: Last Vital Signs Pulse 82 05/12/23 09:59 BP 118/70 05/12/23 09:59 Pulse Ox 97 05/12/23 09:59 Oxygen Delivery Method Room Air 05/12/23 09:59 BMI result Body Mass Index 26.8 Const General: comfortable HEENT Head: Yes normocephalic Neck Neck: Yes supple Chest Chest palpation & inspection: normal inspection of the chest Resp Effort & Inspection: normal respiratory effort Auscultation: diminished lung sounds Cardio Rate: regular rate Rhythm: regular rhythm Heart sounds: S1 normal heart sound present and S2 normal heart sound present GI Palpation (GI): Soft to palpation Skin General skin exam: no rashes or lesions noted Extrem General: Yes no clubbing, cyanosis or edema Immunizations pneumoc 20-maria esther conj-dip cr(PF) Performing Provider: Lev Vargas MD Administered by: Brianna Foss LPN on 05/12/23 10:25 Dose Route Admin Location Lot Number Expiration Date NDC Director Of Analytics 0.5 mL IM Left Deltoid [id number] 07/20/24 9590-5768-61 [employer] VIS Given Date VIS Provided VIS Publication Date 05/12/23 Single Vaccine 23 Eligibility Eligibility Date Funding Source Not [facility] Eligible 05/12/23 Private Assessment & Plan Assessment & Plan (1) Asthma: Comment: Eosinophilic asthma Code(s): J45.909 - Unspecified asthma, uncomplicated Qualifiers: Asthma complication type: uncomplicated Asthma persistence: persistent Asthma severity: moderate Qualified Code(s): J45.40 - Moderate persistent asthma, uncomplicated (2) Eczema: Code(s): L30.9 - Dermatitis, unspecified (3) Chronic allergic rhinitis: Code(s): J30.9 - Allergic rhinitis, unspecified Plan cotninue Synbicort BOBY: Proair Respiclick consider singulair antihistamine as needed Bloodwork/allergy testing PFTs CXR Prevna 20 vaccine today F/U 6-8 weeks Orders: Orders Rast Allergen Today J30.9 - Allergic rhinitis, unspecified, J45.909 - Unspecified asthma, uncomplicated, L30.9 - Dermatitis, unspecified Complete Blood Count Auto Diff Today J30.9 - Allergic rhinitis, unspecified, J45.909 - Unspecified asthma, uncomplicated, L30.9 - Dermatitis, unspecified Erythrocyte Sedimentation Rate Today J30.9 - Allergic rhinitis, unspecified, J45.909 - Unspecified asthma, uncomplicated, L30.9 - Dermatitis, unspecified Hypersensitive Pneumonitis Prf Today J30.9 - Allergic rhinitis, unspecified, J45.909 - Unspecified asthma, uncomplicated, L30.9 - Dermatitis, unspecified, R91.8 - Other nonspecific abnormal finding of lung field Immunoglobulin E Today J30.9 - Allergic rhinitis, unspecified, J45.909 - Unspecified asthma, uncomplicated, L30.9 - Dermatitis, unspecified Immunoglobulins,IgG IgA IgM Today J30.9 - Allergic rhinitis, unspecified, J45.909 - Unspecified asthma, uncomplicated, L30.9 - Dermatitis, unspecified XR chest 2V Today J30.9 - Allergic rhinitis, unspecified, J45.909 - Unspecified asthma, uncomplicated, L30.9 - Dermatitis, unspecified Pneumococcal 20 Immunization Today Z23 - Encounter for immunization Medications: Changed From Symbicort 160-4.5 mcg/actuation (budesonide-formoterol) 2 puffs PO BID 10.2 grams 3RF NS J44.9 - Chronic obstructive pulmonary disease, unspecified To Symbicort 160-4.5 mcg/actuation (budesonide-formoterol) 2 puffs PO BID 30 days 10.2 grams 11RF NS J44.9 - Chronic obstructive pulmonary disease, unspecified Coding Level of Care Code New Pt Level 4 (29467) Diagnoses Asthma J45.40 Asthma complication type: uncomplicated Asthma persistence: persistent Asthma severity: moderate Eczema L30.9 Chronic allergic rhinitis J30.9 Time Spent (min) 40
[2023-05-12 09:59] VITALS: BP 118/70; PULSE 82; O2SAT 97; BMI 26.8
== END 2023-05-12 10:27 | disposition home or self-care (01) ==
PROVIDERS: PCP Internal Medicine; Visit Provider Hospitalist
DX: J45.40 Moderate persistent asthma, uncomplicated (principal); L30.9 Dermatitis, unspecified; J30.9 Allergic rhinitis, unspecified
CPT/HCPCS: 99204

== ENCOUNTER 2023-07-09 09:58 | Outpatient (REF) | payer OTHER, SELFPAY | END 2023-07-09 09:59 | disposition home or self-care (01) | LOC: HO.RESP 09:58 | PROVIDERS: PCP Internal Medicine; Visit Provider Hospitalist | DX: Z13.89 Encounter for screening for other disorder (principal) ==

== ENCOUNTER 2023-07-09 10:01 | Outpatient (AMB) | payer OTHER, SELFPAY ==
[2023-07-09 10:17] VITALS: BP 120/70; PULSE 89; O2SAT 96; BMI 26.1
--- NOTE | 2023-07-09 10:17 | A.OFFVIS_ITS ---
Intake Vital Signs 07/09/23 10:17 Height 6 ft 1 in Weight 198 lb BMI 26.1 BP 120/70 Blood Pressure Location Lt brachial Position Sitting Pulse 89 Pulse Source Pulse Oximeter Pulse Oximetry (%) 96 Oxygen Delivery Method Room Air Intake Visit Reasons: copd Regional Sales Consultant Required: No Allergies No Known Allergies [No Known Allergies*] Allergy (Verified 07/09/23 10:20) HPI HPI Comments History of Present Illness Details The patient is here for pulmonary evaluation. The patient is a 68-year-old gentleman known history of lifelong asthma. He has been relatively stable on Symbicort and also on the ProAir RespiClick inhaler. He does take antihistamines as needed. He also suffers from chronic rhinitis and eczema consistent with atopy. The patient has not required prednisone in several months. He does use his rescue inhaler couple times a week. Typically his seasons are worse during the fall and spring. We did talk about considering Singulair starting in the fall to improve his medication response. The patient has not had any recent x-rays or PFTs. Therefore will have him undergo x-rays PFTs and also blood work to assess his allergies. 07/09/2023 the patient is here for a pulmonary follow-up visit. Overall the patient is feeling better. He does have underlying allergies likely atopic asthma. Seems to be responding well to the Symbicort and also has a ProAir RespiClick that he uses as needed. Typically less than twice a week. In regards of his underlying allergies the patient will be a good candidate for Singulair. He is open to trying at this time. Explained to him that he can always use it seasonally during his worse seasons. Hopefully by using singular we can minimize on the inhaled steroids. He did not undergo his pulmonary function studies. Will go ahead and follow-up in 3-4 months with PFTs. [facility] Medical History (Updated 07/11/23 @ 22:16 by Lev Vargas MD) Asthma-COPD overlap syndrome Asthma Chronic allergic rhinitis GERD without esophagitis Eczema Overweight (BMI 25.0-29.9) Cervical radiculopathy due to degenerative joint disease of spine Cataract Surgical History (Updated 07/09/23 @ 08:08 by Christine Christine PA-C) Hx of colonoscopy (~2014) History of surgery on right wrist (~2021) History of total left knee replacement (~2004) History of right knee surgery (~2019) History of bilateral inguinal hernia repair (~2016) History of cataract surgery Family History Father No problems noted. Mother GERD (gastroesophageal reflux disease) Social History Housing: House Alcohol intake: current Alcohol intake frequency: holidays/special occasions only Alcohol type: beer Patient Tobacco Use Status: Former Tobacco user Tobacco use type: Cigarette e-Cigarette/Vaping Use: Never Used Second Hand Smoke Exposure: Yes service: Yes ([employer]) Current occupational status: retired Current occupation: rt hand/ Cognitive needs: No Hearing needs: No Vision needs: No Review of Systems Const Denies fever(s) Eyes Denies change in vision ENT Reports nasal congestion and Reports nasal discharge Card Denies chest pain Resp Denies chest congestion, Reports cough and Reports wheezing GI Reports no additional complaints Musc Reports no additional complaints Skin/Breast Reports rash Neuro Reports no additional complaints Psych Reports no additional complaints Endo Reports no additional complaints Bassam/Lymph Denies lymphadenopathy Aller/Immun Reports wheezing Physical Exam Vital Signs: Last Vital Signs Pulse 89 07/09/23 10:17 BP 120/70 07/09/23 10:17 Pulse Ox 96 07/09/23 10:17 Oxygen Delivery Method Room Air 07/09/23 10:17 BMI result Body Mass Index 26.1 Const General: comfortable HEENT Head: Yes normocephalic Neck Neck: Yes supple Chest Chest palpation & inspection: normal inspection of the chest Resp Effort & Inspection: normal respiratory effort Auscultation: diminished lung sounds Cardio Rate: regular rate Rhythm: regular rhythm Heart sounds: S1 normal heart sound present and S2 normal heart sound present GI Palpation (GI): Soft to palpation Skin General skin exam: no rashes or lesions noted Extrem General: Yes no clubbing, cyanosis or edema Assessment & Plan Assessment & Plan (1) Asthma: Comment: Eosinophilic asthma Code(s): J45.909 - Unspecified asthma, uncomplicated Qualifiers: Asthma complication type: uncomplicated Asthma persistence: persistent Asthma severity: moderate Qualified Code(s): J45.40 - Moderate persistent asthma, uncomplicated (2) Eczema: Code(s): L30.9 - Dermatitis, unspecified Qualifiers: Eczema type: flexural Qualified Code(s): L20.82 - Flexural eczema (3) Chronic allergic rhinitis: Code(s): J30.9 - Allergic rhinitis, unspecified Plan cotninue Synbicort BOBY: Proair Respiclick start singulair antihistamine as needed PFTs Prevna 20 vaccine today F/U 3-4 months Medications: New montelukast (Singulair) 10 mg PO BEDTIME 30 days 30 tabs 11RF J45.909 - Unspecified asthma, uncomplicated Coding Level of Care Code Est Pt Level 4 (47353) Diagnoses Moderate persistent asthma without complication J45.40 Asthma complication type: uncomplicated Asthma persistence: persistent Asthma severity: moderate Flexural eczema L20.82 Eczema type: flexural Chronic allergic rhinitis J30.9 Time Spent (min) 16
== END 2023-07-09 10:44 | disposition home or self-care (01) ==
PROVIDERS: PCP Internal Medicine; Visit Provider Hospitalist
DX: J45.40 Moderate persistent asthma, uncomplicated (principal); L20.82 Flexural eczema; J30.9 Allergic rhinitis, unspecified
CPT/HCPCS: 99214

== ENCOUNTER 2024-01-27 09:49 | Outpatient (AMB) | payer MEDICARE, SELFPAY ==
[2024-01-27 10:27] VITALS: BP 134/86; PULSE 72; BMI 25.5
--- NOTE | 2024-01-27 10:27 | MHC.PC.OV ---
Vital Signs 01/27/24 10:27 Height 6 ft 1 in Weight 193 lb BMI 25.5 BP 134/86 Blood Pressure Location Lt brachial Position Sitting Pulse 72 Pulse Source Palpation Oxygen Delivery Method Room Air Intake Visit Reasons: PE Intake Note: Patient is here today for a physical. Utility Tender Carding Required: No Accompanied by: Self / Same As Patient Allergies No Known Allergies [No Known Allergies*] Allergy (Verified 01/27/24 10:46) Medication List - Last Reconciled 01/27/24 by Jareth Barry MD albuterol sulfate 90 mcg/actuation (ProAir RespiClick) 2 inhalations inhalation Q6H PRN 30 days budesonide-formoterol 160-4.5 mcg/actuation (Symbicort) 2 puffs inhalation BID 30 days celecoxib 200 mg PO DAILY PRN 90 days fexofenadine (Birgit Allergy) 180 mg PO DAILY PRN fluticasone propion-salmeterol 113-14 mcg/actuation (AirDuo RespiClick) 1 inh inhalation Q12H 30 days ibuprofen 600 mg PO Q6-8H PRN montelukast (Singulair) 10 mg PO BEDTIME 30 days nebulizers As directed omeprazole 20 mg PO DAILY PRN 90 days Symbicort 160-4.5 mcg/actuation (budesonide-formoterol) 2 puffs PO BID 30 days NS Tobacco use date assessed: 01/27/24 Fall risk assessment: No Falls in past year Last assessed Fall Risk: 01/27/24 Dental Screening Dental Screen Date: 01/27/24 Did you have a dental visit in the last 12 months?: Yes Did you have a dental problem in the last 6 months where you did not have access to dental care?: No Was dental information given to patient?: Patient has dentist HPI PE HPI Details Patient comes in today for his annual physical examination States that he accidentally slipped and fell while in the shower a couple of weeks ago He has been experiencing increased pain over his left lower back and around his left hip area since - would like to get some x-rays done to check out his injuries further States that he feels okay otherwise He denies any headaches or dizziness Denies any chest pains, no increased SOB No nausea/ vomiting, no abdominal pain No change in bowel habits noted He denies any acute urinary symptoms Needs a couple of his Rx refilled He had his colonoscopy last done in 2014 and is not due for repeat colonoscopy until next year (2024) [facility] Medical History Asthma-COPD overlap syndrome Asthma Chronic allergic rhinitis GERD without esophagitis Eczema Overweight (BMI 25.0-29.9) Cervical radiculopathy due to degenerative joint disease of spine Cataract Surgical History Hx of colonoscopy (~2014) History of surgery on right wrist (~2021) History of total left knee replacement (~2004) History of right knee surgery (~2019) History of bilateral inguinal hernia repair (~2016) History of cataract surgery Family History Father No problems noted. Mother GERD (gastroesophageal reflux disease) Social History Housing: House Alcohol intake: current Alcohol intake frequency: holidays/special occasions only Alcohol type: beer Patient Tobacco Use Status: Former Tobacco user Tobacco use type: Cigarette e-Cigarette/Vaping Use: Never Used Second Hand Smoke Exposure: Yes service: Yes ([employer]) Current occupational status: retired Current occupation: rt hand/ Cognitive needs: No Hearing needs: No Vision needs: No Questionnaire PHQ-9 Over the last 2 weeks, how often have you been bothered by any of the following problems? 1. Little interest or pleasure in doing things: not at all 2. Feeling down, depressed, or hopeless: not at all 3. Trouble falling or staying asleep, or sleeping too much: not at all 4. Feeling tired or having little energy: not at all 5. Poor appetite or overeating: not at all 6. Feeling bad about yourself - or that you are a failure or have let yourself or your family down: not at all 7. Trouble concentrating on things, such as reading the newspaper or watching television: not at all 8. Moving or speaking so slowly that other people could have noticed. Or the opposite - being so fidgety or restless that you have been moving around a lot more than usual: not at all 9. Thoughts that you would be better off or of hurting yourself in some way: not at all Total score: 0 Depression Screening Interpretation: Negative Depression Screening Done: Yes 26729 - PHQ-9 Billing: Yes Source: Developed by Drs. Paul Kaye, Mercy Wray, Maikel Saavedra and colleagues, with an educational zulema from [employer]. Thrive Questionnaire Date Thrive assessed: 01/27/24 I am a: Patient What is your living situation today?: I have a steady place to live Within the past 12 months, did the food you bought not last and you didn't have the money to get more?: Never true Within the past 12 months, did you worry whether your food would run out before you got money to buy more?: Never true Do you have trouble paying for medicines?: No Do you have trouble getting transportation to medical appointments?: No Do you have trouble paying your heating and electricity bill?: No Do you have trouble taking care of your child, family member or friend?: No Do you have trouble with day-to-day activities such as bathing, preparing meals, shopping, managing finances, etc.?: No Are you currently unemployed and looking for a job?: No Are you interested in more education?: No Please select the resources that you would like help with: None Currently or been in a relationship where the following occur: no concerns reported THRIVE Score: 0 AUDIT C Alcohol Use Questionnaire (AUDIT-C) 1. How often do you have a drink containing alcohol?: Monthly or less 2. How many drinks containing alcohol do you have on a typical day when you are drinking?: 1 or 2 3. How often do you have six or more drinks on one occasion?: Never Total Score: 1 Score Reviewed/Action Taken: Yes NESTOR-7 AMB Questionnaire NESTOR-7 Date NESTOR - 7 assessed: 01/27/24 Feeling nervous, anxious, or on edge: 0 = Not at all Not being able to stop or control worryin = Not at all Worrying too much about different things: 0 = Not at all Trouble relaxin = Not at all Being so restless that it is hard to sit still: 0 = Not at all Becoming easily annoyed or irritable: 0 = Not at all Feeling afraid as if something awful might happen: 0 = Not at all Total NESTOR-7 score (0-4 normal; 5-9 mild; 10-14 moderate; 15-21 severe): 0 Source: Developed by Drs. Paul Kaye, Mercy Wray, Maikel Saavedra and colleagues, with an educational zulema from [employer]. NESTOR-7 Assessment Billing NESTOR-7 Assessment Tool: NESTOR-7 Assessment 26433 Review of Systems Const Denies chills, Denies fatigue, Denies fever(s), Denies headache(s), Denies malaise and Denies weakness Eyes Denies blurry vision, Denies change in vision, Denies irritation and Denies itchy eyes ENT Denies dysphagia, Denies dizziness, Denies otalgia, Denies headache(s), Denies nasal congestion, Denies neck pain, Denies odynophagia and Denies sore throat Card Denies chest pain, Denies rapid heart rate, Denies irregular heart rhythm, Denies palpitations and Denies dyspnea Resp Denies chest congestion, Denies cough, Denies dyspnea and Denies wheezing GI Denies abdominal pain, Denies bloating, Denies constipation, Denies dysphagia, Denies heartburn, Denies diarrhea, Denies nausea, Denies odynophagia and Denies vomiting Denies hematuria, Denies difficulty urinating, Denies dysuria, Denies urinary frequency and Denies urinary urgency Musc Reports back pain (over the left lower back - see HPI), Reports arthralgias (around the left hip area - see HPI), Denies joint swelling, Denies muscle weakness and Denies neck pain Skin/Breast Denies change in pigmentation, Denies lesions, Denies rash and Denies unusual bruising Neuro Denies dizziness, Denies headache(s), Denies paresthesias and Denies weakness Endo Denies fatigue and Denies palpitations Aller/Immun Denies itchy eyes and Denies wheezing Physical exam (Primary Care) Vital Signs: Last Vital Signs Pulse 72 01/27/24 10:27 BP 134/86 01/27/24 10:27 Oxygen Delivery Method Room Air 01/27/24 10:27 BMI result Body Mass Index 25.5 Tobacco/Smoking Status: Tobacco use Status Tobacco use date assessed 01/27/24 01/27/24 10:33 Patient Tobacco Use Status Former Tobacco user 01/27/24 10:28 Tobacco use type Cigarette 01/27/24 10:28 e-Cigarette/Vaping Use Never Used 01/27/24 10:28 PHQ-9: PHQ-9 Score PHQ-9: Total score 0 01/27/24 10:53 Depression Screening Interpretation: Negative Thrive Assessment: Date of Thrive Assessment Date Thrive assessed 01/27/24 01/27/24 10:33 Currently or been in a relationship where the following occur: no concerns reported Const General: no acute distress, alert and awake Orientation/consciousness: patient oriented x3 HENMT Head: Yes normocephalic and Yes atraumatic Ears: external ears normal, TM's normal bilaterally and EAC's normal General nose exam: No nasal discharge present Face and sinus: Yes normal facial exam and Yes sinuses nontender Teeth and gingiva: dentition normal Throat: Yes posterior oropharynx normal and Yes tonsils normal (no TP congestion) Eyes Eyelids: Yes eyelids normal Conjunctivae: conjunctivae normal Pupils: Equal, round and reactive pupils present EOM: EOMs intact bilaterally Neck Neck: Yes no lymphadenopathy and Yes supple Thyroid: Thyroid normal Resp Auscultation: clear to auscultation bilaterally, no rales and no wheezes Cardio Rate: regular rate Rhythm: regular rhythm Heart sounds: no murmurs GI Palpation (GI): Soft to palpation, nontender and No hepatosplenomegaly present Auscultation: normal bowel sounds Back/Spine/Pelvis Thoracic/Lumbar Spine: paraspinal muscle tenderness on the left in the upper thoracic, in the mid lumbar and in the lower lumbar and lumbar spinal tenderness Skin Lesions: no lesions Rashes: no rashes Neuro General: patient oriented x3, moves all extremities, no focal motor deficits and CN's II-XI intact bilaterally Cranial nerves: Yes Equal, round and reactive pupils present Cognition (Neuro): normal cognition Gait exam (Neuro): Normal gait present Extrem General: Yes no clubbing, cyanosis or edema Left lower extremity: hip/thigh Details: tenderness Location: of the hip Location: posterolaterally Assessment and Plan Assessment & Plan (1) Annual physical exam: Code(s): Z00.00 - Encounter for general adult medical examination without abnormal findings Plan: Check labs He is not due for his repeat colonoscopy until next year (2024) (2) Asthma-COPD overlap syndrome: Code(s): J44.9 - Chronic obstructive pulmonary disease, unspecified Plan: Appears stable/controlled Continue Symbicort 160-4.5 mcg 2 inhalations BID and Albuterol HFA 2 inhalations Q 6 hours PRN Used to see Dr. Hurley at [facility] for pulmonary follow up but per request, will refer here to [facility] Pulmonary ahd he would like to follow up with specialists here locally instead (3) GERD without esophagitis: Code(s): K21.9 - Gastro-esophageal reflux disease without esophagitis Plan: Dietary restrictions reinforced Continue Omeprazole 20 mg QD - Rx refiilled (4) Cervical radiculopathy due to degenerative joint disease of spine: Code(s): M47.22 - Other spondylosis with radiculopathy, cervical region Plan: Continue Celecoxib 200 mg QD with food PRN - Rx refilled (5) Left low back pain: Code(s): M54.50 - Low back pain, unspecified Qualifiers: Chronicity: acute Sciatica presence: without sciatica Qualified Code(s): M54.50 - Low back pain, unspecified Plan: Is most likely due to his fall in the shower a couple of weeks ago Per request, will send him for x-rays of the lumbar spine and left hip for further evaluation (6) Left hip pain: Code(s): M25.552 - Pain in left hip Plan: S/P fall in the shower a couple of weeks ago Will send him for left hip x-rays for further evaluation (7) Overweight (BMI 25.0-29.9): Code(s): E66.3 - Overweight Plan: Reinforced diet/exercise as tolerated/lose weight Plan Follow up in 6 months Orders: Orders XR lumbar spine 2-3V 01/27/24 M54.50 - Low back pain, unspecified, Z91.81 - History of falling Complete Blood Count Auto Diff 01/27/24 D64.9 - Anemia, unspecified, Z00.00 - Encounter for general adult medical examination without abnormal findings Lipid Panel 01/27/24 E78.00 - Pure hypercholesterolemia, unspecified, Z00.00 - Encounter for general adult medical examination without abnormal findings UA CC w/rflx Micro + Cult 01/27/24 R30.0 - Dysuria, Z00.00 - Encounter for general adult medical examination without abnormal findings Vitamin D 25-OH Total 01/27/24 E55.9 - Vitamin D deficiency, unspecified, Z00.00 - Encounter for general adult medical examination without abnormal findings Prostate Specific Antigen 01/27/24 N40.0 - Benign prostatic hyperplasia without lower urinary tract symptoms, Z00.00 - Encounter for general adult medical examination without abnormal findings XR hip LT min 2V 01/27/24 M25.552 - Pain in left hip, Z91.81 - History of falling Comprehensive [place]. Panel Fast 01/27/24 E78.00 - Pure hypercholesterolemia, unspecified, Z00.00 - Encounter for general adult medical examination without abnormal findings TSH reflex Free T4 01/27/24 E78.00 - Pure hypercholesterolemia, unspecified, Z00.00 - Encounter for general adult medical examination without abnormal findings Referrals Pulmonary Medicine Referral J44.9 - Chronic obstructive pulmonary disease, unspecified Medications: Refilled celecoxib Take with food 200 mg PO DAILY 90 days PRN 90 caps 1RF pain omeprazole 20 mg PO DAILY 90 days PRN 90 caps 1RF acid reflux Coding Level of Care Code Est Pt Prev Care >65y(91803) Diagnoses Annual physical exam Z00.00 Asthma-COPD overlap syndrome J44.9 GERD without esophagitis K21.9 Cervical radiculopathy due to degenerative joint disease of spine M47.22 Acute left-sided low back pain without sciatica M54.50 Chronicity: acute Sciatica presence: without sciatica Left hip pain M25.552 Overweight (BMI 25.0-29.9) E66.3 Additional Codes NESTOR-7 Assessment Billing - NESTOR-7 Assessment Tool: NESTOR-7 Assessment 91049 ([id number])
== END 2024-01-27 11:01 | disposition home or self-care (01) ==
PROVIDERS: PCP Internal Medicine; Visit Provider Internal Medicine
DX: Z00.00 Encounter for general adult medical examination without abnormal findings (principal); J44.9 Chronic obstructive pulmonary disease, unspecified; K21.9 Gastro-esophageal reflux disease without esophagitis; M47.22 Other spondylosis with radiculopathy, cervical region; M54.50 Low back pain, unspecified; M25.552 Pain in left hip; E66.3 Overweight
CPT/HCPCS: 99397

== ENCOUNTER 2024-01-31 06:20 | Outpatient (REF) | payer OTHER, SELFPAY ==
--- NOTE | ~2024-01-31 | XR_ITS ---
EXAM: X-RAY LUMBAR SPINE X-RAY LEFT HIP CLINICAL INFORMATION: Pain in left hip, low back pain. COMPARISON: None. TECHNIQUE: 2 views of the left hip. 3 views of the lumbar spine. FINDINGS: Left hip: Bones are diffusely demineralized. Limited visualization due to bowel gas and body habitus. Moderate narrowing particularly along the superior aspect of the left hip joint space with lateral acetabular hypertrophic change. Lumbar spine: Mild dextroscoliosis of the lumbar spine. The bones are diffusely demineralized. Straightening of the normal lumbar lordosis. Multilevel lumbar spondylosis. Numhxlbe-ow-nublyt loss of disc space height, subchondral sclerosis and vacuum phenomenon at L3-L4. Minimal grade 1 retrolisthesis of L3 on L4, and of L4 on L5. Ljeb-nf-xwufxwba loss of disc space height at L4-L5 and L5-S1. Facet arthritis in the lower lumbar spine. Mild degenerative changes of the bilateral sacroiliac joints. XR/XR hip LT min 2V IMPRESSION: 1. Moderate degenerative changes in the left hip. 2. Multilevel lumbar spondylosis most notable at L3-L4. CT scan or MRI recommended for further evaluation if there is clinical concern for fracture or other underlying pathology.
--- NOTE | ~2024-01-31 | XR_ITS ---
EXAM: X-RAY LUMBAR SPINE X-RAY LEFT HIP CLINICAL INFORMATION: Pain in left hip, low back pain. COMPARISON: None. TECHNIQUE: 2 views of the left hip. 3 views of the lumbar spine. FINDINGS: Left hip: Bones are diffusely demineralized. Limited visualization due to bowel gas and body habitus. Moderate narrowing particularly along the superior aspect of the left hip joint space with lateral acetabular hypertrophic change. Lumbar spine: Mild dextroscoliosis of the lumbar spine. The bones are diffusely demineralized. Straightening of the normal lumbar lordosis. Multilevel lumbar spondylosis. Rmyknfya-nk-nomjmj loss of disc space height, subchondral sclerosis and vacuum phenomenon at L3-L4. Minimal grade 1 retrolisthesis of L3 on L4, and of L4 on L5. Effz-ku-mcnuysbx loss of disc space height at L4-L5 and L5-S1. Facet arthritis in the lower lumbar spine. Mild degenerative changes of the bilateral sacroiliac joints. XR/XR lumbar spine 2-3V IMPRESSION: 1. Moderate degenerative changes in the left hip. 2. Multilevel lumbar spondylosis most notable at L3-L4. CT scan or MRI recommended for further evaluation if there is clinical concern for fracture or other underlying pathology.
[2024-01-31 06:33] LABS: MANUAL DIFF FLAG NO
[2024-01-31 07:50] LABS: Basophils Absolute Auto 0.1 X10*3/uL (0.0-0.2); Basophils Percent Auto 0.7 % (0-2); Eosinophils Absolute Auto 0.3 X10*3/uL (0.0-0.4); Eosinophils Percent Auto 4.7 % (0-4); Hematocrit 46.5 % (42.0-52.0); Imm Gran Abs Auto 0.03 X10*3/uL (0.00-0.03); Imm Gran Pct Auto 0.4 % (0.0-0.4); Lymphocytes Absolute Auto 1.8 X10*3/uL (1.2-4.9); Lymphocytes Percent Auto 25.5 % (20-40); Mean Corpuscular HGB Conc 34.4 g/dl (31.0-36.0); Mean Corpuscular Hemoglobin 31.9 pg (27.0-33.0); Mean Corpuscular Volume 92.8 fL (80.0-98.0); Mean Platelet Volume 11.2 fL (9.4-12.4); Monocytes Absolute Auto 0.7 X10*3/uL (0.1-1.2); Monocytes Percent Auto 9.2 % (2-11); Neutrophils Absolute Auto 4.3 x10*3/uL (2.0-8.3); Neutrophils Percent Auto 59.5 % (45-73); Platelet Count 208 X10*3/uL (160-400); Red Blood Count 5.01 X10*6/uL (4.60-5.80); Red Cell Distribution Width 12.5 % (11.0-16.0); White Blood Count 7.2 X10*3/uL (4.8-10.8)
[2024-01-31 08:26] LABS: Appearance Urine Clear; Color Urine Yellow; Glucose Urine UA Negative (Negative); Leukocyte Esterase Urine Negative (Negative); Nitrite Urine Negative (Negative); PH 5.5 (5.0-9.0); Specific Gravity - Urine 1.025 (1.005-1.025); Urine Blood Negative (Negative); Urine Ketones Negative (Negative); Urine Protein Negative (Neg-Trace)
[2024-01-31 08:36] LABS: Alanine Aminotransferase 10 U/L (0-40); Albumin Level 3.8 g/dL (3.5-5.0); Alkaline Phosphatase 81 U/L (39-117); Anion Gap 16 (12-20); Aspartate Amino Transferase 14 U/L (5-37); Bilirubin Total 0.6 mg/dL (0.0-1.0); Blood Urea Nitrogen 16 mg/dL (9-16); Calcium 8.9 mg/dL (8.4-10.2); Carbon Dioxide 19 mmol/L (22-29); Chloride 109 mmol/L (96-108); Cholesterol 171 mg/dL (<200); Estimated Glomerular Filt Rate > 60; Glucose Fasting 92 mg/dL (60-99); HDL Cholesterol 41 mg/dL (>40); LDL Cholesterol Calculated 113 mg/dL (<100); Potassium 4.5 mmol/L (3.3-5.1); Sodium 139 mmol/L (135-145); Total Protein 7.5 g/dL (6.5-8.0); Triglycerides 85 mg/dL (<150)
[2024-01-31 08:42] LABS: Prostate Specific Antigen 3.54 ng/mL (<0.05-4.0)
[2024-01-31 08:55] LABS: Vitamin D 25-OH Total 19.1 ng/mL (>30)
== END 2024-01-31 06:21 | disposition home or self-care (01) ==
LOC: HO.LAB 06:20
PROVIDERS: PCP Internal Medicine; Visit Provider Internal Medicine
DX: Z00.00 Encounter for general adult medical examination without abnormal findings (principal); M25.552 Pain in left hip; Z91.81 History of falling; M54.50 Low back pain, unspecified; D64.9 Anemia, unspecified; E78.00 Pure hypercholesterolemia, unspecified; R30.0 Dysuria; E55.9 Vitamin D deficiency, unspecified
CPT/HCPCS: 36415; 72100; 73502; 80053; 80061; 81003; 82306; 84153; 84443; 85025

== ENCOUNTER 2025-04-23 10:38 | Outpatient (AMB) | payer MEDICARE, SELFPAY ==
--- NOTE | 2025-04-23 10:41 | A.OFFVIS_ITS ---
Vital Signs 04/23/25 10:42 Height 6 ft 1 in Weight 195 lb BMI 25.7 BP 111/62 Blood Pressure Location Lt brachial Position Sitting Pulse 77 Pulse Source Pulse Oximeter Pulse Oximetry (%) 98 Oxygen Delivery Method Room Air Intake Visit Reasons: COPD Allergies No Known Allergies (No Known Allergies*) Allergy (Verified 04/23/25 10:50) HPI Comments Details: The patient is a 70-year-old gentleman known history of lifelong asthma. He has been relatively stable on Symbicort and also on the ProAir RespiClick inhaler. He does take antihistamines as needed. He also suffers from chronic rhinitis and eczema consistent with atopy. The patient has not required prednisone in several months. He does use his rescue inhaler couple times a week. Typically his seasons are worse during the fall and spring. We did talk about considering Singulair starting in the fall to improve his medication response. The patient has not had any recent x-rays or PFTs. Therefore will have him undergo x-rays PFTs and also blood work to assess his allergies. 07/09/2023 the patient is here for a pulmonary follow-up visit. Overall the patient is feeling better. He does have underlying allergies likely atopic asthma. Seems to be responding well to the Symbicort and also has a ProAir RespiClick that he uses as needed. Typically less than twice a week. In regards of his underlying allergies the patient will be a good candidate for Singulair. He is open to trying at this time. Explained to him that he can always use it seasonally during his worse seasons. Hopefully by using singular we can minimize on the inhaled steroids. He did not undergo his pulmonary function studies. Will go ahead and follow-up in 3-4 months with PFTs. 04/23/2025 the patient is here for a pulmonary follow-up visit. Overall he is doing okay. He had been on the Symbicort and double switched over to the generic Symbicort and he was very concerned about that. He also has a rescue inhaler. He continues to have chest tightness at times. He does use the inhaler that he has previously although he has not use the new 1 just yet. I did encourage him that is the same medication and that the side effect profiles minimal. Therefore, he feels comfortable taking it now. In the meantime he has not had pulmonary function studies or an x-ray recently. Therefore will have him get PFTs and a chest x-ray and have follow-up in the fall in order to further adjust his medications. Based on the blood work he does have significant eosinophilia consistent with eosinophilic asthma. Therefore he may be a candidate for biologics if he continues to be symptomatic. [facility] Medical History Asthma-COPD overlap syndrome Asthma Chronic allergic rhinitis GERD without esophagitis Eczema Overweight (BMI 25.0-29.9) Cervical radiculopathy due to degenerative joint disease of spine Cataract Surgical History Hx of colonoscopy (~2014) History of surgery on right wrist (~2021) History of total left knee replacement (~2004) History of right knee surgery (~2019) History of bilateral inguinal hernia repair (~2016) History of cataract surgery Family History Father No problems noted. Mother GERD (gastroesophageal reflux disease) Social History Housing: House Alcohol intake: current Alcohol intake frequency: holidays/special occasions only Alcohol type: beer Patient Tobacco Use Status: Former Tobacco user Tobacco use type: Cigarette e-Cigarette/Vaping Use: Never Used Second Hand Smoke Exposure: Yes service: Yes ([employer]) Current occupational status: retired Current occupation: rt hand/ Cognitive needs: No Hearing needs: No Vision needs: No Review of Systems Const Denies fever(s) Eyes Denies change in vision ENT Reports nasal congestion and Reports nasal discharge Card Denies chest pain Resp Denies chest congestion, Reports cough and Reports wheezing GI Reports no additional complaints Musc Reports no additional complaints Skin/Breast Reports rash Neuro Reports no additional complaints Psych Reports no additional complaints Endo Reports no additional complaints Bassam/Lymph Denies lymphadenopathy Aller/Immun Reports wheezing Physical Exam Vital Signs: Last Vital Signs Pulse 77 04/23/25 10:42 BP 111/62 04/23/25 10:42 Pulse Ox 98 04/23/25 10:42 Oxygen Delivery Method Room Air 04/23/25 10:42 BMI result Body Mass Index 25.7 Const General: comfortable HEENT Head: Yes normocephalic Neck Neck: Yes supple Chest Chest palpation & inspection: normal inspection of the chest Resp Effort & Inspection: normal respiratory effort Auscultation: diminished lung sounds Cardio Rate: regular rate Rhythm: regular rhythm Heart sounds: S1 normal heart sound present and S2 normal heart sound present GI Palpation (GI): Soft to palpation Skin General skin exam: no rashes or lesions noted Extrem General: Yes no clubbing, cyanosis or edema Assessment & Plan Assessment & Plan (1) Asthma: Comment: Eosinophilic asthma Code(s): J45.909 - Unspecified asthma, uncomplicated Category: Medical Qualifiers: Asthma complication type: uncomplicated Asthma persistence: persistent Asthma severity: moderate Qualified Code(s): J45.40 - Moderate persistent asthma, uncomplicated (2) Eczema: Code(s): L30.9 - Dermatitis, unspecified Category: Medical Qualifiers: Eczema type: flexural Qualified Code(s): L20.82 - Flexural eczema (3) Chronic allergic rhinitis: Code(s): J30.9 - Allergic rhinitis, unspecified Category: Medical Plan cotninue Synbicort BOBY: Proair Respiclick singulair antihistamine as needed PFTs CXR F/U 3 months Orders: Orders XR chest 2V Today J45.40 - Moderate persistent asthma, uncomplicated PFT pulmonary function test Today J45.40 - Moderate persistent asthma, uncomplicated Medications: Discontinued Symbicort 160-4.5 mcg/actuation (budesonide-formoterol) Discontinued Reason: Doctor's Order 2 puffs PO BID 30 days 10.2 grams 11RF NS J44.9 - Chronic obstructive pulmonary disease, unspecified fluticasone propion-salmeterol 113-14 mcg/actuation (AirDuo RespiClick) Discontinued Reason: Doctor's Order 1 inh inhalation Q12H 30 days 1 ea 11RF Coding Level of Care Code Est Pt Level 4 (83819) Complex EM visit Add On G2211 Diagnoses Moderate persistent asthma without complication J45.40 Asthma complication type: uncomplicated Asthma persistence: persistent Asthma severity: moderate Flexural eczema L20.82 Eczema type: flexural Chronic allergic rhinitis J30.9 Time Spent (min) 17
[2025-04-23 10:42] VITALS: BP 111/62; PULSE 77; O2SAT 98; BMI 25.7
== END 2025-04-23 11:21 | disposition home or self-care (01) ==
LOC: HO.HPS 10:39
PROVIDERS: PCP Internal Medicine; Visit Provider Hospitalist
DX: J45.40 Moderate persistent asthma, uncomplicated (principal); L20.82 Flexural eczema; J30.9 Allergic rhinitis, unspecified
CPT/HCPCS: 99214; G2211

== ENCOUNTER → 2025-04-23 10:38 | Outpatient (BNVA) | payer MEDICARE, SELFPAY | PROVIDERS: PCP Internal Medicine; Visit Provider Hospitalist | DX: J45.40 Moderate persistent asthma, uncomplicated (principal); L20.82 Flexural eczema; J30.9 Allergic rhinitis, unspecified | CPT/HCPCS: 99212 ==

== ENCOUNTER 2025-06-27 08:25 | Outpatient (REF) | payer MEDICARE, SELFPAY ==
--- NOTE | ~2025-06-27 | XR_ITS ---
EXAMINATION: XR CHEST 2 VIEWS HISTORY: J45.40 - Moderate persistent asthma, uncomplicated COMPARISON: Comparison is made with the prior examination dated 05/12/2023. FINDINGS: PA and lateral views of the chest are submitted. The lungs are expanded and clear. There is no pleural effusion, pneumothorax, or pulmonary vascular congestion. The heart is normal in size. There is mild degenerative disc disease of the spine. XR/XR chest 2V IMPRESSION: No acute cardiopulmonary abnormality. Electronically signed by: Paul Bobby MD 06/27/2025 08:37 AM EDT
== END 2025-06-27 08:26 | disposition home or self-care (01) ==
LOC: HO.XRAY 08:25
PROVIDERS: PCP Internal Medicine; Visit Provider Hospitalist
DX: J45.40 Moderate persistent asthma, uncomplicated (principal)
CPT/HCPCS: 71046

== ENCOUNTER → 2025-06-27 08:28 | Outpatient (BNV) | payer MEDICARE, SELFPAY | PROVIDERS: PCP Internal Medicine; Visit Provider Radiology Diagnostic Radiology | DX: J45.909 Unspecified asthma, uncomplicated (principal) | CPT/HCPCS: 71046 ==

== ENCOUNTER 2025-06-29 09:28 | Outpatient (REF) | payer MEDICARE, SELFPAY ==
--- NOTE | 2025-06-29 09:59 | PFT_ITS ---
Flows: FEV1: 100 % of predicted at 3.42 L FVC: 115 % of predicted at 5.21 L FEV1/FVC: 66 % Bronchodilator response: Present Volumes: Total lung capacity: 90 % of predicted at 6.87 L Residual volume: 69 % of predicted at 1.88 L Slow vital capacity: 102 % of predicted at 4.99 L Expiratory reserve volume: 95 % of predicted at 1.30 L Diffusion capacity: Normal Impression: Mild obstructive ventilatory defect with positive bronchodilator response. MTDD
[2025-06-29 10:40] VITALS: PULSE 65; O2SAT 96
== END 2025-06-29 09:29 | disposition home or self-care (01) ==
LOC: HO.RESP 09:28
PROVIDERS: PCP Internal Medicine; Visit Provider Hospitalist
DX: J45.40 Moderate persistent asthma, uncomplicated (principal); Z87.891 Personal history of nicotine dependence
CPT/HCPCS: 94060; 94640; 94727; 94729

== ENCOUNTER → 2025-06-29 09:59 | Outpatient (BNV) | payer MEDICARE, SELFPAY | PROVIDERS: PCP Internal Medicine; Visit Provider Internal Medicine Pulmonary Disease | DX: J98.4 Other disorders of lung (principal) | CPT/HCPCS: 94060; 94727; 94729 ==

== ENCOUNTER 2025-08-02 10:24 | Outpatient (AMB) | payer MEDICARE, SELFPAY ==
[2025-08-02 10:37] VITALS: BP 130/96; PULSE 95; O2SAT 97; BMI 25.7
--- NOTE | 2025-08-02 10:37 | MHC.OFFVIS ---
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 He has been relatively stable on Symbicort and also on the ProAir RespiClick inhaler. He does take antihistamines as needed. He also suffers from chronic rhinitis and eczema consistent with atopy. The patient has not required prednisone in several months. He does use his rescue inhaler couple times a week. Typically his seasons are worse during the fall and spring. We did talk about considering Singulair starting in the fall to improve his medication response. The patient has not had any recent x-rays or PFTs. Therefore will have him undergo x-rays PFTs and also blood work to assess his allergies. 07/09/2023 the patient is here for a pulmonary follow-up visit. Overall the patient is feeling better. He does have underlying allergies likely atopic asthma. Seems to be responding well to the Symbicort and also has a ProAir RespiClick that he uses as needed. Typically less than twice a week. In regards of his underlying allergies the patient will be a good candidate for Singulair. He is open to trying at this time. Explained to him that he can always use it seasonally during his worse seasons. Hopefully by using singular we can minimize on the inhaled steroids. He did not undergo his pulmonary function studies. Will go ahead and follow-up in 3-4 months with PFTs. 04/23/2025 the patient is here for a pulmonary follow-up visit. Overall he is doing okay. He had been on the Symbicort and double switched over to the generic Symbicort and he was very concerned about that. He also has a rescue inhaler. He continues to have chest tightness at times. He does use the inhaler that he has previously although he has not use the new 1 just yet. I did encourage him that is the same medication and that the side effect profiles minimal. Therefore, he feels comfortable taking it now. In the meantime he has not had pulmonary function studies or an x-ray recently. Therefore will have him get PFTs and a chest x-ray and have follow-up in the fall in order to further adjust his medications. Based on the blood work he does have significant eosinophilia consistent with eosinophilic asthma. Therefore he may be a candidate for biologics if he continues to be symptomatic. 08/02/2025 the patient is here for pulmonary follow-up visit. Overall the patient has been doing okay. He does complaint of increased daytime drowsiness. [place] score is elevated 08/13. He does have issues with apneic episodes. He also has a smart watch that is told him that he stops breathing multiple times a night. He is concerned about this. Will go ahead and request a home sleep study at this time to assess him for sleep apnea. In the meantime he continues to have dyspnea on exertion. Xakd-lx-dosdaqvq severity. He also has a cough. Does not feel like the Symbicort generic is helping him. He did have PFTs which I personally reviewed. The patient does have evidence of mild COPD. Will go ahead and switch him over to Trelegy for better response. As far as imaging study he did have a chest x-ray without any acute disease which is reassuring. Will go ahead and follow-up in 4-6 months if he has any issues he can always call for an earlier assessment or recommendations. [facility] Medical History Asthma-COPD overlap syndrome Asthma Chronic allergic rhinitis GERD without esophagitis Eczema Overweight (BMI 25.0-29.9) Cervical radiculopathy due to degenerative joint disease of spine Cataract Surgical History Hx of colonoscopy (~2014) History of surgery on right wrist (~2021) History of total left knee replacement (~2004) History of right knee surgery (~2019) History of bilateral inguinal hernia repair (~2016) History of cataract surgery Family History Father No problems noted. Mother GERD (gastroesophageal reflux disease) Social History (Reviewed 08/02/25 @ 10:45 by LINDSEY Huffman Housing: House Alcohol intake: current Alcohol intake frequency: holidays/special occasions only Alcohol type: beer Patient Tobacco Use Status: Former Tobacco user Tobacco use type: Cigarette e-Cigarette/Vaping Use: Never Used Second Hand Smoke Exposure: Yes service: Yes ([employer]) Current occupational status: retired Current occupation: rt hand/ Cognitive needs: No Hearing needs: No Vision needs: No Review of Systems Const Reports daytime sleepiness, Reports difficulty sleeping, Denies fever(s) and Reports snoring Eyes Denies change in vision ENT Reports nasal congestion and Reports nasal discharge Card Denies chest pain Resp Denies chest congestion, Reports cough, Reports snoring and Reports wheezing GI Reports no additional complaints Musc Reports no additional complaints Skin/Breast Reports rash Neuro Reports no additional complaints Psych Reports no additional complaints Endo Reports no additional complaints Bassam/Lymph Denies lymphadenopathy Aller/Immun Reports wheezing Physical Exam Vital Signs: Last Vital Signs Pulse 95 08/02/25 10:37 BP 130/96 H 08/02/25 10:37 Pulse Ox 97 08/02/25 10:37 Oxygen Delivery Method Room Air 08/02/25 10:37 BMI result Body Mass Index 25.7 Const General: comfortable HEENT Head: Yes normocephalic Neck Neck: Yes supple Chest Chest palpation & inspection: normal inspection of the chest Resp Effort & Inspection: normal respiratory effort Auscultation: diminished lung sounds Cardio Rate: regular rate Rhythm: regular rhythm Heart sounds: S1 normal heart sound present and S2 normal heart sound present GI Palpation (GI): Soft to palpation Skin General skin exam: no rashes or lesions noted Extrem General: Yes no clubbing, cyanosis or edema Assessment & Plan Assessment & Plan (1) Asthma: Comment: Eosinophilic asthma Code(s): J45.909 - Unspecified asthma, uncomplicated Category: Medical Qualifiers: Asthma complication type: uncomplicated Asthma persistence: persistent Asthma severity: moderate Qualified Code(s): J45.40 - Moderate persistent asthma, uncomplicated (2) Eczema: Code(s): L30.9 - Dermatitis, unspecified Category: Medical Qualifiers: Eczema type: flexural Qualified Code(s): L20.82 - Flexural eczema (3) Chronic allergic rhinitis: Code(s): J30.9 - Allergic rhinitis, unspecified Category: Medical (4) DAYRON (obstructive sleep apnea): Code(s): G47.33 - Obstructive sleep apnea (adult) (pediatric) Category: Medical Plan stop Synbicort start Trelegy BOBY: Proair Respiclick Home PSG F/U 3-4 months Orders: Orders RT home sleep study Today G47.33 - Obstructive sleep apnea (adult) (pediatric) Medications: New jkifqwnhauq-cftvdmbuk-sbdrixiw 200-62.5-25 mcg (Trelegy Ellipta) 1 inh inhalation DAILY 60 ea 12RF 30 days Discontinued budesonide-formoterol 160-4.5 mcg/actuation (Breyna) Discontinued Reason: Doctor's Order 2 inhalations PO BID 10.3 grams 11RF J44.89 - Other specified chronic obstructive pulmonary disease Coding Level of Care Code Est Pt Level 4 (64971) Complex EM visit Add On G2211 Diagnoses Moderate persistent asthma without complication J45.40 Asthma complication type: uncomplicated Asthma persistence: persistent Asthma severity: moderate Flexural eczema L20.82 Eczema type: flexural Chronic allergic rhinitis J30.9 DAYRON (obstructive sleep apnea) G47.33 Time Spent (min) 17
== END 2025-08-02 11:17 | disposition home or self-care (01) ==
LOC: HO.HPS 10:24
PROVIDERS: PCP Internal Medicine; Visit Provider Hospitalist
DX: J45.40 Moderate persistent asthma, uncomplicated (principal); L20.82 Flexural eczema; J30.9 Allergic rhinitis, unspecified; G47.33 Obstructive sleep apnea (adult) (pediatric)
CPT/HCPCS: 99214; G2211

== ENCOUNTER → 2025-08-02 10:24 | Outpatient (BNVA) | payer MEDICARE, SELFPAY | PROVIDERS: PCP Internal Medicine; Visit Provider Hospitalist | DX: J45.40 Moderate persistent asthma, uncomplicated (principal); J30.9 Allergic rhinitis, unspecified; L20.82 Flexural eczema; G47.33 Obstructive sleep apnea (adult) (pediatric) | CPT/HCPCS: 99212 ==

== ENCOUNTER → 2025-08-30 10:01 | Outpatient (REF) | payer MEDICARE, SELFPAY | LOC: HO.SL 10:01 | PROVIDERS: PCP Internal Medicine; Visit Provider Hospitalist | DX: G47.33 Obstructive sleep apnea (adult) (pediatric) (principal); R06.83 Snoring; R40.0 Somnolence | CPT/HCPCS: 95806 ==

== ENCOUNTER → 2025-08-30 10:12 | Outpatient (BNV) | payer MEDICARE, SELFPAY | PROVIDERS: PCP Internal Medicine; Visit Provider Internal Medicine | DX: G47.33 Obstructive sleep apnea (adult) (pediatric) (principal) | CPT/HCPCS: 95806 ==